=== PATIENT | female | born 1935 | race African-American/Black ===

== ENCOUNTER 2016-06-28 09:34 | Inpatient (IN) | payer OTHER ==
[~2016-06-28] VITALS: Ht 177.8 cm; Wt 101.3 kg
[~2016-06-28 09:34] MED LIST: AMLODIPINE BESY10 MG PO; ATORVASTATIN CA20 MG PO; DIAZEPAM5 MG PO; DULERA 200 MCG/13 GM IH; LEVETIRACETAM500 MG PO; LO-DOSE ASPIRIN81 M2 PO; LOSARTAN POTAS100 MG PO; TRAZODONE HCL50 MG PO; TYLENOL REGULA325 MG PO; VENTOLIN HFA18 GM IH; [UNRECOGNIZED DRUG - CODE] IV
[2016-06-28 10:04] LABS: BASE EXCESS -7.5 mEq/L (-3 to +3); BICARBONATE 19.3 mEq/L (22-26); CARBOXY HGB 1.8 % (0-5); METHEMOGLOBIN 0.7 % (0-1.5); PCO2 43 mm Hg (35-45); PO2 76 mm Hg (80-100)
[2016-06-28 10:05] LABS: COMMENTS - BLOOD GASES +C; FI02 21 %; SITE RR +A
[2016-06-28 10:06] LABS: TOTAL RESP RATE 18 resp/min; pH 7.26 (7.35-7.45)
[2016-06-28 10:13] LABS: EOSINOPHIL (%) 5.5 % (0-5); EOSINOPHIL COUNT 0.3 K/uL (0-0.3); IMMATURE GRANULOCYTE (%) 1.3 % (0.0-0.7); IMMATURE GRANULOCYTE COUNT 0.8 K/uL; LYMPHOCYTE COUNT 1.2 K/uL (1.0-2.8); MCH 28.8 PG (29.0-34.0); MCHC 34.3 G/DL (30.0-36.0); MCV 84.1 FL (83-99); MEAN PLAT.VOLUME 10.3 uM^3 (9.5-12.4); MONOCYTE (%) 9.8 % (3-12); MONOCYTE COUNT 0.6 K/uL (0-0.8); NEUTROPHIL (%) 63.9 % (45-76); NEUTROPHIL COUNT 3.9 K/uL (1.8-6.4); PLATELET COUNT 274 K/uL (156-360); RBC DIS.WIDTH-CV 14.5 % (11.8-14.6); RBC DIS.WIDTH-SD 43.4 % (39-53); RED BLOOD COUNT 4.16 M/uL (3.80-5.20)
[2016-06-28 10:23] LABS: CHLORIDE 96 mEq/L (99-109); POTASSIUM 4.2 mEq/L (3.7-5.4); SODIUM 131 mEq/L (136-147)
[2016-06-28 10:25] LABS: GLUCOSE 94 mg/dL (70-99)
[2016-06-28 10:26] LABS: ANION GAP 19 MEQ/L (2-14)
[2016-06-28 10:27] LABS: TOTAL BILIRUBIN 0.3 mg/dL (0.0-1.0)
[2016-06-28 10:29] LABS: ALKALINE PHOSPHATASE 118 IU/L (3-129); GFR ESTIMATE (CALCULATED) > 59 mL/min/
[2016-06-28 10:30] LABS: UREA NITROGEN (BUN) 14 mg/dL (9-23)
[2016-06-28 10:32] LABS: CREATINE KINASE 68 IU/L (1-294); TOTAL CK 68 IU/L (1-294)
[2016-06-28 10:34] LABS: TROP-I INTERPRETATION NEGATIVE; TROPONIN-I < 0.01 ng/mL (0.0-0.30)
[2016-06-28 10:38] LABS: CK-MB 1.8 ng/mL (0.0-4.9)
[2016-06-28] MEDS ORDERED: DULERA 200 MCG/13 GM IH (13:05)
[2016-06-28] MEDS ORDERED: ERGOCALCIF50000 UNIT PO (13:08)
[2016-06-28] MEDS ORDERED: IRON325 MG PO (13:08)
[2016-06-28] MEDS ORDERED: PROVENTIL,2.5 MG/3 M IH (13:14)
[2016-06-28] MEDS ORDERED: MILK OF MAGN PO (13:14)
[2016-06-28] MEDS ORDERED: DULCOLAX10 MG PR (13:15)
[2016-06-28 13:46] LABS: BASE EXCESS -4.3 mEq/L (-3 to +3); BICARBONATE 21.6 mEq/L (22-26); CARBOXY HGB 1.3 % (0-5); PCO2 42 mm Hg (35-45); pH 7.32 (7.35-7.45)
[2016-06-28 13:47] LABS: COMMENTS - BLOOD GASES A+C+; DEVICE VM; MECHANICAL RATE 16 resp/min; O2 FLOW 12 L/MIN; PO2 115 mm Hg (80-100); SITE RR
[2016-06-28 16:45] VITALS: BP 99/55
[2016-06-28 19:47] VITALS: BP 92/53
[2016-06-28 23:56] VITALS: BP 119/57
[2016-06-29 06:58] LABS: HEMATOCRIT 29.6 % (36.0-46.0); MCH 28.7 PG (29.0-34.0); MCHC 33.8 G/DL (30.0-36.0); MCV 85.1 FL (83-99); MEAN PLAT.VOLUME 10.1 uM^3 (9.5-12.4); PLATELET COUNT 209 K/uL (156-360); RBC DIS.WIDTH-CV 15.2 % (11.8-14.6); RBC DIS.WIDTH-SD 47.2 % (39-53); RED BLOOD COUNT 3.48 M/uL (3.80-5.20)
[2016-06-29 07:12] LABS: ANION GAP 9 MEQ/L (2-14); CHLORIDE 101 MEQ/L (99-109); GFR ESTIMATE (CALCULATED) > 59 mL/min/; GLUCOSE 116 mg/dL (70-99); POTASSIUM 4.3 MEQ/L (3.7-5.4); SAMPLE HEMOLYSIS CHECK 0; SAMPLE ICTERIC CHECK 0; SAMPLE LIPEMIA CHECK 0; SODIUM 135 MEQ/L (136-147); UREA NITROGEN (BUN) 21 mg/dL (9-23)
[2016-06-29 07:49] VITALS: BP 95/53
[2016-06-29 14:58] VITALS: BP 98/48
[2016-06-30] MEDS ORDERED: LEVSIN-SL0.125 MG SL (12:57)
[2016-06-30] MEDS ORDERED: KEPPRA500 MG PO (12:57)
[2016-06-30] MEDS ORDERED: MORPHINE CON20 MG/M1 PO (12:58)
[2016-06-30] MEDS ORDERED: ATIVAN INTE2 MG/1 ML SL (12:58)
== END 2016-06-30 15:10 | DRG 100 ==
LOC: EME → EDBD 09:34 → EDOF 12:26 → 5EAST 12:26 → EDOF 12:26 → 5EAST 16:14
PROVIDERS: Emergency Medicine; Family Medicine
DX: G40.901 Epilepsy, unspecified, not intractable, with status epilepticus (principal); E87.1 Hypo-osmolality and hyponatremia; R40.20 Unspecified coma; G93.40 Encephalopathy, unspecified; A52.3 Neurosyphilis, unspecified; K92.2 Gastrointestinal hemorrhage, unspecified; R06.00 Dyspnea, unspecified; I10 Essential (primary) hypertension; E78.5 Hyperlipidemia, unspecified; J45.909 Unspecified asthma, uncomplicated; D64.9 Anemia, unspecified; E87.6 Hypokalemia; A53.0 Latent syphilis, unspecified as early or late; Z87.891 Personal history of nicotine dependence; F03.90 Unspecified dementia, unspecified severity, without behavioral disturbance, psychotic disturbance, mood disturbance, and anxiety; Z51.5 Encounter for palliative care; R11.10 Vomiting, unspecified
CPT/HCPCS: 36600; 70450; 70551; 71010; 80048; 80053; 81003; 82550; 82553; 82803; 84484; 85025; 85027; 93005; 94640; 94640 76; 94799; 95819; 99202; 99281; 99285; C9113; J1165; J1650; J1953; J2060; J2250; J2405; J2543; J7030; J7050